=== PATIENT | female | born 2000 | race Caucasian/White ===

== ENCOUNTER 2019-11-02 23:29 | Emergency (ER) | payer OTHER ==
[~2019-11-02] VITALS: Ht 172.7 cm; Wt 119.7 kg
[2019-11-02 23:36] VITALS: BP 147/74
--- NOTE | 2019-11-02 23:40 | NUR ---
PT TAKEN TO BED 9
[2019-11-02] MEDS ORDERED: NACL 0.9% 1,000 ML IV ONE (23:45)
[2019-11-03 00:04] LABS: BASOPHILS % (AUTO) 0.3 % (0.0-2.0); EOSINOPHILS % (AUTO) 0.2 % (0.0-4.0); HEMOGLOBIN 12.6 g/dL (12.0-16.0); LYMPHOCYTES # (AUTO) 1.8 K/uL (2.5-16.5); LYMPHOCYTES % (AUTO) 9.9 % (20.5-51.1); MEAN CORPUSCULAR HEMOGLOBIN 29 pg (27-31); MEAN CORPUSCULAR HGB CONC 33 g/dL (33-37); MEAN CORPUSCULAR VOLUME 86.3 fL (80-94); MONOCYTES # (AUTO) 0.9 K/uL (0.8-1.0); MONOCYTES % (AUTO) 5.2 % (1.7-9.3); PLATELET COUNT (AUTO) 296 K/uL (140-450); RED CELL DISTRIBUTION WIDTH 13.7 % (11.6-13.7); WHITE BLOOD COUNT (AUTO) 17.8 K/uL (4.5-11.0)
--- NOTE | 2019-11-03 00:08 | NUR ---
Dr. Bruno examining patient.
[2019-11-03 00:18] LABS: ALBUMIN 4.3 g/dL (3.4-5.0); ANION GAP 12.6 (8-16); CARBON DIOXIDE 27.9 mmol/L (21-32); CREATININE 0.7 mg/dL (0.6-1.3); NEUTROPHILS % (AUTO) 84.4 % (42.2-75.2); POTASSIUM 3.5 mmol/L (3.5-5.1); TOTAL BILIRUBIN 0.4 mg/dL (0.0-1.0)
--- NOTE | 2019-11-03 01:06 | NUR ---
X-Ray at bedside.
[2019-11-03 01:52] VITALS: BP 128/72
--- NOTE | 2019-11-03 01:52 | NUR ---
Patient discharged with v/s stable. Written and verbal after care instructions given and explained. Patient alert, oriented and verbalized understanding of instructions. Ambulatory with steady gait. All questions addressed prior to discharge. ID band removed. Patient advised to follow up with PMD. Rx of MOTRIN AND AZITHROMYCIN given. Patient educated on indication of medication including possible reaction and side effects. Opportunity to ask questions provided and answered.
--- NOTE | 2019-11-05 10:24 | NUR ---
Late entry. Confirmed with RN that 0.9NS IV completed at 0100
== END 2019-11-03 01:52 | disposition home or self-care (01) ==
LOC: MED 23:29
DX: J02.8 Acute pharyngitis due to other specified organisms (principal); J45.909 Unspecified asthma, uncomplicated; E11.9 Type 2 diabetes mellitus without complications; I10 Essential (primary) hypertension
CPT/HCPCS: 36415; 71045; 80053; 85025; 87804; 99285; J7030; Q0092